=== PATIENT | male | born 1965 | race Caucasian/White ===

== ENCOUNTER → 2018-02-27 | Outpatient (CLI) | payer BC ==
--- NOTE | 2018-02-27 11:17 | NM ---
EXAMINATION TYPE: NM stress cardiolite complete DATE OF EXAM: 02/27/2018 COMPARISON: NONE HISTORY: Angina TECHNIQUE: After the intravenous administration of 9.5 mCi Tc 99m Sestamibi - Rest images obtained 4 5 minutes post injection. The patient exercised using a KESHAV protocol and 1 minute prior to peak e xercise was injected with 26.8 mCi Tc 99m Sestamibi - Stress images obtained 10 minutes post injectio n. FINDINGS: Targeted heart rate was achieved during performance of the study. Review of stress and rest SPECT tomi ges demonstrates no distinct perfusion abnormality. Gated analysis shows normal wall motion with an estimated left ventricular ejection fraction of 70 %. IMPRESSION: No scintigraphic evidence for reversible ischemia
--- NOTE | 2018-02-27 14:05 | EST ---
EXERCISE STRESS DATE OF SERVICE: 02/27/2018 AGE: 52 SEX: Male HT: 67" WT: 200 pounds PROTOCOL: Cardiolite Ravinder STAGE: III DURATION OF EXERCISE: 9 minutes HEART RATE REST: 70 BLOOD PRESSURE REST: 141/86 MAXIMUM HEART RATE ACHIEVED: 143 MAXIMUM BLOOD PRESSURE: 201/120 85% MPHR: 141 100% MPHR: 166 METS: 7.8 INDICATIONS: Angina. CLINICAL INFORMATION: The patient was exercised for a total period of 9 minutes. The peak heart rate of 143 was achieved. Maximum blood pressure of 201/120 mmHg was noted. Resting EKG shows normal sinus rhythm with normal WV interval and QRS duration and normal ST-T waves. No ST-segment depression suggestive of ischemia is noted. The patient did not complain of any chest pain during the test. FINAL IMPRESSION: This exercise test is not suggestive of ischemia. The patient did not complain of any anginal pain during the test. The results of the nuclear study will follow. Patient's exercise tolerance is normal. MMODL / IJN: [id number] /
== END | disposition home or self-care (01) ==
LOC: RADNMMAIN 08:13
PROVIDERS: ATTEND Family Medicine
DX: I20.9 Angina pectoris, unspecified (principal)
CPT/HCPCS: 93017; 78452; A9500

== ENCOUNTER 2020-07-14 07:25 | Day surgery (SDC) | payer BC, OTHER ==
[2020-07-11 09:10] VITALS: BMI 33.6
[~2020-07-14 07:25] MED LIST: LACTATED RINGERS 1,000 ML IV SCH
[2020-07-14 07:50] VITALS: RESP 16
[2020-07-14] MEDS ORDERED: PROPOFOL 10 MG/ML 20 ML VIAL IV ONE (08:27)
--- NOTE | 2020-07-14 08:31 | P.GSHP ---
History of Present Illness H&P Date: 07/14/20 Chief Complaint: History of colon polyps 4-year-old male who presents today for colonoscopy. He's had history of colon polyps. Past Medical History Past Medical History: Deep Vein Thrombosis (DVT), Hyperlipidemia, Hypertension, Osteoarthritis (OA) Additional Past Medical History / Comment(s): MULTIPLE SCLEROSIS , DVT LEFT LEG , History of Any Multi-Drug Resistant Organisms: None Reported Past Surgical History: Back Surgery Additional Past Surgical History / Comment(s): COLONOSCOPY X3, UMBILICAL HERNIA, RIGHT KNEE SURGERY-ARTHROTOMY Past Anesthesia/Blood Transfusion Reactions: No Reported Reaction Smoking Status: Former smoker - Past Family History Father Family Medical History: Cancer Medications and Allergies Home Medications Medication Instructions Recorded Confirmed Type Losartan [Cozaar] 50 mg PO DAILY 07/11/20 07/14/20 History Rosuvastatin Calcium [Crestor] 20 mg PO VIDALES 07/11/20 07/14/20 History amLODIPine [Norvasc] 10 mg PO DAILY 07/11/20 07/14/20 History rOPINIRole HCL [Requip] 0.5 mg PO HS 07/11/20 07/14/20 History Allergies Allergy/AdvReac Type Severity Reaction Status Date / Time No Known Allergies Allergy Unverified 07/11/20 08:39 Surgical - Exam Vital Signs Pulse Resp BP Pulse Ox 74 16 129/73 98 07/14/20 07:44 07/14/20 07:44 07/14/20 07:44 07/14/20 07:44 - General well developed, well nourished, no distress - Eyes PERRL - ENT normal pinna - Neck no masses - Respiratory normal expansion - Cardiovascular Rhythm: regular - Abdomen Abdomen: soft, non tender Assessment and Plan Assessment: Colon polyp. We'll perform colonoscopy.
--- NOTE | 2020-07-14 08:40 | P.OP ---
Date of Procedure: 07/14/20 Preoperative Diagnosis: History of colon polyps Postoperative Diagnosis: Diverticulosis Procedure(s) Performed: P colonoscopy Anesthesia: GETA Interpretive Program Coordinator #1: John Gardner Pathology: none sent Condition: stable Disposition: PACU Description of Procedure: The patient's placed on the endoscopy table in the lateral position. He received IV sedation. Digital rectal exam was performed which revealed no abnormalities. Ross a was symmetric without nodules. The flexible colonoscope was then placed patient anus and passed throughout the entire colon. The ileocecal valve was visualized. The cecum, ascending and transverse colon appeared normal. In the descending and sigmoid colon there is mild diverticular changes. There was no evidence of diverticulitis. The scope was then brought back the rectum this appeared normal. Scope was withdrawn for patient.
[2020-07-14 09:01] VITALS: BP 136/84; PULSE 76
== END 2020-07-14 09:47 | disposition home or self-care (01) ==
LOC: ORWHC2ENDO 07:25
PROVIDERS: ATTEND Surgery
DX: Z12.11 Encounter for screening for malignant neoplasm of colon (principal); K57.30 Diverticulosis of large intestine without perforation or abscess without bleeding; I10 Essential (primary) hypertension; E78.5 Hyperlipidemia, unspecified; M19.90 Unspecified osteoarthritis, unspecified site; Z86.718 Personal history of other venous thrombosis and embolism; G35 Multiple sclerosis; Z98.890 Other specified postprocedural states; Z87.891 Personal history of nicotine dependence; Z79.899 Other long term (current) drug therapy
CPT/HCPCS: J2704; G0121; 45378

== ENCOUNTER → 2020-09-13 | Outpatient (CLI) | payer OTHER | END | disposition home or self-care (01) | DX: M25.461 Effusion, right knee (principal) ==

== ENCOUNTER → 2020-11-16 | Outpatient (CLI) | payer OTHER ==
[2020-11-16 14:08] LABS: Anisocytosis Slight; Basophils % (A) 1 %; Eosinophils # (A) 0.1 k/uL (0-0.7); Eosinophils % (A) 1 %; Lymphocytes # (A) 1.8 k/uL (1.0-4.8); Lymphocytes % (A) 26 %; MCH 26.7 pg (25.0-35.0); MCHC 32.7 g/dL (31.0-37.0); MCV 81.8 fL (80.0-100.0); Mean Platelet Volume 10.3; Microcytosis Slight; Monocytes # (A) 0.6 k/uL (0-1.0); Monocytes % (A) 9 %; Neutrophils # (A) 4.1 k/uL (1.3-7.7); Neutrophils % (A) 60 %; Platelet Count 227 k/uL (150-450); RBC 5.63 m/uL (4.30-5.90); RDW 16.9 % (11.5-15.5); WBC 6.8 k/uL (3.8-10.6)
[2020-11-16 14:28] LABS: Potassium 4.4 mmol/L (3.5-5.1)
== END | disposition home or self-care (01) ==
LOC: LABPAT 12:38
PROVIDERS: ATTEND Orthopaedic Surgery
DX: Z01.812 Encounter for preprocedural laboratory examination (principal); M23.91 Unspecified internal derangement of right knee
CPT/HCPCS: 36415; 80051; 85025; 93005

== ENCOUNTER 2020-11-23 06:58 | Day surgery (SDC) | payer OTHER ==
[2020-11-21 09:44] VITALS: BMI 34.0
--- NOTE | 2020-11-22 19:15 | HP ---
HISTORY AND PHYSICAL REASON FOR ADMISSION: Surgery scheduled for 11/23/2020. HISTORY OF PRESENT ILLNESS: Henrik Alvraado is a 54-year-old gentleman seen with progressive right knee pain. We discussed options for treatment. He elected to proceed with arthroscopy. Consent was obtained. PAST MEDICAL HISTORY: Hypertension, hyperlipidemia and multiple sclerosis. PAST SURGICAL HISTORY: Umbilical herniorrhaphy, knee arthroscopy, lumbar spine surgery. MEDICATIONS: Cozaar, Crestor, Norvasc, . ALLERGIES: None. SOCIAL HISTORY: Denies tobacco use. PHYSICAL EVALUATION OF THE RIGHT KNEE: Range of motion is 0 to 130. He has mild effusion. Tenderness along the medial joint line. Positive medial Jim's. Ligaments stable. Hip rotation without pain. Distal neurovascular exam is intact. RADIOGRAPHS: Radiographs of the right knee revealed evidence of moderate osteoarthritis. There are baylee within the proximal medial tibia and distal medial femur. MRI of the right knee revealed a small to moderate size suprapatellar effusion. Osteoarthritic changes. IMPRESSION: 1. Internal derangement of right knee with osteochondral tear. 2. Hypertension. 3. Hyperlipidemia. PLAN: Right knee arthroscopy with chondroplasty and debridement. Surgery 11/23/2020. MMODL / IJN: [id number] /
[~2020-11-23 06:58] MED LIST changes: +DEXAMETHASONE SOD PHOSPHATE 4 MG/ML 1 ML VIAL IV ONE; +ONDANSETRON 4 MG/2 ML VIAL IVP ONE
[2020-11-23] MEDS ORDERED: HYDROmorphone 0.5 MG/0.5 ML SYRINGE IVP PRN (07:00)
[2020-11-23 07:26] VITALS: TEMP 97.2
[2020-11-23] MEDS ORDERED: PROPOFOL 10 MG/ML 20 ML VIAL IV ONE (08:20)
[2020-11-23] MEDS ORDERED: fentaNYL (PF) 50 MCG/ML 2 ML AMP ONE (08:20)
[2020-11-23] MEDS ORDERED: MIDAZOLAM 2 MG/2 ML VIAL ONE (08:20)
[2020-11-23] MEDS ORDERED: LIDOCAINE 1% INJ 10MG/ML (20 ML MDV) ONE (08:20)
[2020-11-23] MEDS ORDERED: KETOROLAC 15 MG/ML 1 ML VIAL ONE (08:20)
[2020-11-23] MEDS ORDERED: HYDROmorphone (PF) 1 MG/ML ONE (08:20)
[2020-11-23] MEDS ORDERED: BUPIVACAINE (PF) 0.25% 30 ML VIAL INTRAARTIC ONE (08:44)
--- NOTE | 2020-11-23 09:12 | P.OP ---
Date of Procedure: 11/23/20 Preoperative Diagnosis: Internal derangement right knee Postoperative Diagnosis: 1. Tear medial meniscus right knee 2. Grade 2 chondromalacia medial femoral condyle right knee 3. Reactive synovitis medial, lateral and suprapatellar compartments right knee Procedure(s) Performed: 1. Arthroscopic partial medial meniscectomy right knee 2. Arthroscopic chondroplasty medial femoral condyle right knee 3. Arthroscopic partial synovectomy medial, lateral and suprapatellar compartments right knee Anesthesia: GALENA, local Surgeon: Octaviano Sullivan Estimated Blood Loss (ml): 6 Pathology: none sent Condition: stable Disposition: PACU Indications for Procedure: 54-year-old patient seen with progressive right knee pain. After treatment options were discussed, he elected to proceed with arthroscopy. Operative Findings: see description of procedure Description of Procedure: Patient was taken to the operative suite. Patient underwent a general anesthetic by the department of anesthesia. Patient was given preoperative an tibiotics. The right lower extremity was placed in a well-padded arthroscopic leg venegas. The right leg was prepped and draped in the normal sterile orthopedic fashion. A lateral parapatellar and suprapatellar incision was made. Trochars were inserted. Arthroscopy was initiated. Suprapatellar pouch revealed diffuse thick reactive synovitis. The patellofemoral joint appeared to articulate congruently. There was grade 1 chondromalacia with no osteochondral tears present. The scope was guided into the medial gutter. No loose bodies or plica were identified The scope was then guided into the medial compartment. A medial parapatellar incision was made. Trocar inserted followed by probe. There was a complex tear involving the posterior horn of the medial meniscus was resected extending into the midbody area. There were grade 2 chondromalacia changes of the medial femoral condyle with some osteochondral flap tears present. There was thick reactive synovitis anteriorly. I performed a partial medial meniscectomy getting down to stable meniscal tissue. I performed a chondroplasty of the medial femoral condyle getting down to stable osteochondral tissue. I performed a partial synovectomy compressing the thick reactive synovitis. The residual meniscus was probed and found to be stable. The residual osteochondral surface of the medial femoral condyle was stable. There was good decompression of the synovitis. Scope and probe were then guided into the intercondylar notch. Cruciates were identified, probed and found to be stable. The scope and probe were then guided into lateral compartment. The lateral meniscus was probed and found to be stable. There were grade 2 chondral moist changes of the lateral femoral condyle with no osteochondral tears present. There was thick reactive synovitis anteriorly. I introduced a motorized shaver and performed a partial synovectomy. The shaver was removed. There was good decompression of synovitis. The scope was in guided back into the suprapatellar compartment. I introduced a motorized shaver into the suprapatellar compartment. I debrided some piecemeal fragments of meniscus I encountered. I performed a partial synovectomy. Shaver was removed. There appeared be good decompression of synovitis. I now took one more look on the entire knee, no residual debris. Instruments were now removed from the joint. The joint was infiltrated with .25% Marcaine. Steri-Strips were applied to the portal sites. Sterile dressings were applied. The patient was placed into a JEAN PIERRE hose. No tourniquet was utilized. The patient was awakened, transferred to a bed and taken to recovery stable satisfactory condition.
[2020-11-23 10:08] VITALS: BP 118/80; PULSE 72; RESP 18
== END 2020-11-23 10:57 | disposition home or self-care (01) ==
LOC: OR 06:58
PROVIDERS: ATTEND Orthopaedic Surgery
DX: S83.241A Other tear of medial meniscus, current injury, right knee, initial encounter (principal); M94.261 Chondromalacia, right knee; M65.861 Other synovitis and tenosynovitis, right lower leg; M17.11 Unilateral primary osteoarthritis, right knee; E78.5 Hyperlipidemia, unspecified; G35 Multiple sclerosis; I10 Essential (primary) hypertension; Z79.899 Other long term (current) drug therapy; Z98.890 Other specified postprocedural states; Z87.891 Personal history of nicotine dependence
CPT/HCPCS: 29881; 29876; J2250; J1100; J0690; J2405; J2001; J3010; J1170; J1885; J2704

== ENCOUNTER → 2022-07-27 | Outpatient (CLI) | payer BC ==
--- NOTE | 2022-07-28 14:43 | MR ---
EXAMINATION TYPE: MR tib fib LT wo/w con DATE OF EXAM: 07/27/2022 COMPARISON: Correlation right knee radiograph 08/25/2020 and previous knee MRI 09/13/2020 HISTORY: 56-year-old male R22.42, Mass, swelling, Marker placed left upper lateral side of tib/fib Technique: Multiplanar, multisequence images of the left tibia/fibula were obtained before and after administration of 10 mL intravenous Gadavist gadolinium contrast. FINDINGS: Along the patient's palpable site, anterolateral left upper leg, there is an oval, circumscribed brig ht signal intensity lesion measuring 2.7 cm wide by 7 mm thick by 3.0 cm craniocaudal. This is locate d within the deep aspect of the subcutaneous fat layer overlying the superficial fascia. There is a l ow single rim and mild peripheral enhancement. However, the internal content follows fat signal on al l of the sequences. Incidentally seen on the right is previous MCL repair in either chronic meniscal tear or prior partia l meniscectomy. Degenerative change in the right medial compartment. Mild generalized fatty atrophy of the musculature. No acute or healing fracture is seen. No suspicious bone marrow replacement. No other significant sof t tissue abnormality is seen. IMPRESSION: A 3.0 x 2.7 x 0.7 cm oval lesion in the subcutaneous fat layer of the anterolateral left upper leg co rresponding to the patient's palpable site. There is a thin low signal rim and thin, peripheral postc ontrast enhancement. However, the internal signal intensity follows that of fat. Suspect an area of f at necrosis. Less likely lipomatous tumor (such as as lipoma or atypical lipomatous tumor). Recommend clinical follow-up to ensure stability. If there is growth or if the area remains symptomatic, consi nikolas surgical excision.
== END | disposition home or self-care (01) ==
LOC: RADMRIMAIN 07:57
PROVIDERS: ATTEND Family Medicine
DX: R22.42 Localized swelling, mass and lump, left lower limb (principal)
CPT/HCPCS: 73720; A9585